=== PATIENT | female | born 1930 | race Caucasian/White ===

== ENCOUNTER → 2016-04-14 | Outpatient (CLI) | payer MEDICARE, OTHER ==
[~2016-04-14] MED LIST: ASPIRIN PO; CALCIUM 1,0001 EACH; CENTRUM PO; FOSAMAX PO; HCTZ PO; VITAMIN D31000 UNIT PO
== END | disposition home or self-care (01) ==
LOC: CSSDAY 09:55
DX: M85.80 Other specified disorders of bone density and structure, unspecified site (principal)
CPT/HCPCS: 82310; 96372; J0897

== ENCOUNTER 2016-08-14 04:56 | Emergency (ER) | payer MEDICARE ==
--- NOTE | ~2016-08-14 | CR151 ---
[facility]. [facility] A Service of [facility] & [facility] RADIOLOGY TEXT RESULTS PATIENT: LAURENCE ALEJANDRO LOCATION: SED : 30 UNIT #: [id number] AGE: [address]: Bishop Walters MD SEX: F ORDER DR: [id number] [address] [address] [id number] E MR#: [id number] Acc #: [id number] NAME: LAURENCE ALEJANDRO : 1930 SEX: F STUDY DATE/TIME: 08/14/2016 5:29 UNIT: SED ROOM: STUDY DESCRIPTION: CR Hip Min 2 Views Rt Attending Physician: Bishop Walters M.D. Ordering Physician: Bishop Walters M.D. MEDICAL IMAGING REPORT This report is preliminary unless electronic signature is present. EXAM Right hip. INDICATIONS Trauma status post fall. Right humeral head pain. FINDINGS AP view of the pelvis and frog-leg lateral view of the right hip without comparison. There is a fracture of the superior pubic ramus on the right. An inferior pubic ramus fracture is suspected. The hips show superior joint space narrowing bilaterally. IMPRESSION 1. Superior pubic ramus fracture is nondisplaced. 2. Suspected inferior pubic ramus fracture. Dictated by... Richard Cueto M.D. THIS IS AN ELECTRONICALLY VERIFIED REPORT Richard Cueto M.D. at 08/15/2016 1:02 AM FAM/lillian TD: 08/14/2016 18:12 JOB #: [id number] MEDICAL IMAGING REPORT Page 1 of 1
== END 2016-08-14 06:40 | disposition home or self-care (01) ==
LOC: SED 04:56
DX: S32.511A Fracture of superior rim of right pubis, initial encounter for closed fracture (principal); Z87.442 Personal history of urinary calculi; W18.30XA Fall on same level, unspecified, initial encounter; Y92.009 Unspecified place in unspecified non-institutional (private) residence as the place of occurrence of the external cause
CPT/HCPCS: 73502; 99284

== ENCOUNTER 2016-08-15 13:45 | Emergency (ER) | payer MEDICARE, OTHER ==
--- NOTE | ~2016-08-15 | CR63 ---
[facility] A Service of [facility] RADIOLOGY TEXT RESULTS PATIENT: LAURENCE ALEJANDRO LOCATION: SED : 30 UNIT #: [id number] AGE: [address]: Regi Brown MD SEX: F ORDER DR: [id number] [address] [address] [id number] E MR#: [id number] Acc #: [id number] NAME: LAURENCE ALEJANDRO. : 1930 SEX: F STUDY DATE/TIME: 08/15/2016 14:23 UNIT: SED ROOM: STUDY DESCRIPTION: CR Chest 2 View Attending Physician: Regi Brown M.D. Ordering Physician: Regi Brown M.D. Primary Care Physician: Bishnu Heck D.O. MEDICAL IMAGING REPORT This report is preliminary unless electronic signature is present. EXAM Chest PA and lateral, 08/15/2016 HISTORY Bilateral rib pain and chest pain for 2 days status post fall after losing balance. FINDINGS There is no prior chest radiograph for comparison. The heart is top normal in size. Thoracic aorta is minimally ectatic. The lungs are hyperinflated with emphysematous and fibrotic changes characteristic of COPD. Focal fibrosis and bronchiectasis in the right perihilar region. No airspace consolidation is seen. There are no pleural effusions. 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 No active pulmonary disease. Dictated by... Fabio Zhu M.D. THIS IS AN ELECTRONICALLY VERIFIED REPORT Fabio Zhu M.D. at 08/16/2016 2:09 PM JO/lola TD: 08/16/2016 02:23 JOB #: [id number] MEDICAL IMAGING REPORT [facility] A Service [facility] RADIOLOGY TEXT RESULTS PATIENT: LAURENCE ALEJANDRO LOCATION: SED : 30 UNIT #: [id number] AGE: [address]: Regi Brown MD SEX: F ORDER DR: Page 1 of 1
== END 2016-08-15 15:03 | disposition home or self-care (01) ==
LOC: SED 13:45
DX: S20.219A Contusion of unspecified front wall of thorax, initial encounter (principal); M54.6 Pain in thoracic spine; Z90.49 Acquired absence of other specified parts of digestive tract; Z98.890 Other specified postprocedural states; W19.XXXA Unspecified fall, initial encounter; Y92.009 Unspecified place in unspecified non-institutional (private) residence as the place of occurrence of the external cause
CPT/HCPCS: 71020; 99283